=== PATIENT | female | born 1990 | race Two or more races ===

== ENCOUNTER 2016-07-03 21:13 | Emergency (ER) | payer SELFPAY ==
--- NOTE | ~2016-07-03 | ER ---
PATIENT'S NAME: ALTAGRACIA PETERS [facility] AGE: 25 Y [address] ROOM: [place] [address] LOCATION: [facility] ADMIT DATE: 07/03/2016 ER/Outpatient Report DISCHARGE DATE: 07/03/2016 FAMILY PHYSICIAN: PHYSICIAN, NO ATTENDING PHYSICIAN: Kiki Turner HISTORY OF PRESENT ILLNESS: This is a 25-year-old female, who presents today with a chief complaint of abdominal pain. She says that she is currently about 12 weeks . Her LMP was April 13. She states that she has not had any bleeding. She knows that her blood type is O negative. It is just a constant sort of bloating and lower pelvic pain, lower abdominal pain. She does not feel contractions. No vaginal bleeding. No leakage of fluid. No urinary symptoms. This pain started two days ago. 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 She has no other complaints at this time. No nausea or vomiting. No fever or chills. No other complaints. PAST MEDICAL HISTORY: Drug use and alcoholism. HISTORY: She is a -0-1-2. LMP 04/13/2016. Blood type O-negative. care none. She has not had an original ultrasound. ALLERGIES: NONE. MEDICATIONS: None. SURGICAL HISTORY: x2. SOCIAL HISTORY: She smokes a pack per day. She drinks alcohol daily, and she currently uses meth and the last time was 24 hours ago. REVIEW OF SYSTEMS: Reviewed by me and negative with the exception of those discussed in HPI. PHYSICAL EXAMINATION: VITAL SIGNS: She is 4 feet 11 inches. She weighs 61.9 kilos. Blood pressure 117/57, heart rate 93, respiratory rate 16, temperature is 98.7, saturating 98% on room air. PATIENT'S NAME: ALTAGRACIA PETERS [facility] AGE: 25 Y [address] ROOM: [place] [address] LOCATION: [facility] ADMIT DATE: 07/03/2016 ER/Outpatient Report DISCHARGE DATE: 07/03/2016 FAMILY PHYSICIAN: PHYSICIAN, NO ATTENDING PHYSICIAN: Kiki Turner GENERAL: The patient is in no acute distress. She is alert, interactive. She is not pale or diaphoretic. HEART: Regular rate and rhythm. ABDOMEN: Soft, and nontender. No suprapubic tenderness. No left lower quadrant tenderness. EXTREMITIES: She moves all extremities without any difficulty. No pedal edema. LUNGS: Sounds are clear. IMAGING: Bedside ultrasound transabdominal was done. I am able to visualize a gestational sac. I cannot visualize if it is empty. I cannot visualize anything else. EMERGENCY ROOM COURSE: The transvaginal ultrasound OB less than 12 weeks is ordered. I discussed the results with the tech; sac is empty, so she likely had early embryonic demise. It is empty. Her cervix is closed. Discussed this with the patient. She can follow up with her Basket Machine Operator. She understands she needs to come back to the ER sooner. IMPRESSION: Empty embryonic sac, abdominal pain and . MD NIKKO BOYLE/glen /[id number] d: 07/04/16 1205 t: 08/02/16 1101, OUTPATIENT REPORT
[~2016-07-03 21:13] MED LIST: BACTRIM DS1 TAB PO; LATUDA20 MG PO; LEXAPRO10 MG PO; LEXAPRO20 MG PO; NEURONTIN300 MG PO; VISTARIL25 MG PO; WELLBUTRIN XL150 M1 PO
== END 2016-07-03 22:45 | disposition disaster alternative care site (69) ==
LOC: GMED 21:13
DX: O99.89 Other specified diseases and conditions complicating pregnancy, childbirth and the puerperium (principal); R10.9 Unspecified abdominal pain; O99.331 Smoking (tobacco) complicating pregnancy, first trimester; F17.210 Nicotine dependence, cigarettes, uncomplicated; Z3A.12 12 weeks gestation of pregnancy